=== PATIENT | female | born 1945 | race Caucasian/White ===

== ENCOUNTER 2024-08-27 14:31 | Emergency (ER) | payer MEDICARE, BC ==
[2024-08-27 14:41] VITALS: RESP 18
[2024-08-27] MEDS: DIPH,PERTUS(ACELL)TETVAC-LF 0.5 ML VIAL IM ONE (15:00)
[2024-08-27] MEDS: LIDOCAINE/EPINEPHR/TETRACAINE 5 ML BOTTLE TOPICAL ONE (15:31)
--- NOTE | 2024-08-27 15:35 | CT ---
EXAMINATION TYPE: CT brain cspine wo con DATE OF EXAM: 08/27/2024 3:28 PM COMPARISON: None available. CLINICAL INDICATION: Female, 78 years old with history of pain; Fall. No LOC. No thinners. TECHNIQUE: Brain: Multiple axial CT images of the brain were obtained without IV contrast. Cspine: Axial CT images from the skull base to the inferior aspect of T2 we obtained without intraven ous contrast. Coronal and sagittal reformatted images were also reviewed. . CT DLP: 1194.7 mGycm, Automated exposure control for dose reduction was used. FINDINGS: Brain: Extra-axial spaces: No abnormal extra-axial fluid collections. Ventricular system: Dilatation in proportion to cerebral atrophy. Cerebral parenchyma: No acute intraparenchymal hemorrhage or mass effect. The stafford-white junction is well differentiated. Scattered hypoattenuating areas are seen within the white matter. Cerebellum: Unremarkable. Mass effect: No evidence of midline shift. Intracranial vasculature: unremarkable Soft tissues: Normal. Calvarium/osseous structures: No depressed skull fracture. Paranasal sinuses and mastoid air cells: Clear. Visualized orbits: Orbital contents are intact. Cervical spine: Fracture: None. Osseous structures: Unremarkable Vertebral alignment: Within normal limits. Spinal canal/Neural Foramina: Multilevel facet arthropathy, uncovertebral hypertrophy and posterior d isc osteophyte complexes cause varying degrees of spinal canal and neural foraminal stenosis. Overall , evaluation of the spinal canal limited due to streak artifact. Neck soft tissues: Prevertebral soft tissues are within normal limits. Other: The airway is patent. The lung apices are clear. IMPRESSION: 1. No acute intracranial process. 2. No acute fracture or traumatic subluxation of the cervical spine. 3. Multilevel cervical spine degenerative changes as above. [facility], , 08/27/2024 3:33 PM
--- NOTE | 2024-08-27 15:37 | XR ---
EXAMINATION TYPE: XR knee complete LT DATE OF EXAM: 08/27/2024 3:28 PM COMPARISON: None. CLINICAL INDICATION: Female, 78 years old with history of pain; PHH, pain TECHNIQUE: XR knee complete LT views submitted.. FINDINGS: No acute fracture or dislocation. Small suprapatellar joint effusion. Moderate to severe bart int compartment degenerative arthritis with marginal ossified formation and subchondral sclerosis. IMPRESSION: 1. No acute fracture or dislocation. 2. 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 [facility], , 08/27/2024 3:35 PM
--- NOTE | 2024-08-27 15:41 | ED ---
Fall HPI - General Chief Complaint: Fall Stated Complaint: Fall facial injury L leg Time Seen by Provider: 08/27/24 14:41 Source: patient, RN notes reviewed Mode of arrival: wheelchair Limitations: no limitations - History of Present Illness Initial Comments: 78-year-old female presents emergency department complaint of a trip and fall. Patient states she fell at home striking the left side of her body. Patient went to the left knee pain left hip pain and left side of her head pain. Patient states that she has a laceration, multiple abrasions. She is unsure when her last tetanus was. No visual disturbance denies any neck pain or neck stiffness no back pain she is able to weight-bear on the left leg but is painful. - Related Data Home Medications Medication Instructions Recorded Confirmed Alendronate Sodium [Fosamax] 70 mg PO SA 09/08/14 09/14/14 Fluticasone Propion/Salmeterol 1 inhalation PO RT-BID PRN 09/08/14 09/14/14 [Advair 250-50 Diskus] Ibuprofen [Advil] 200 mg PO Q6HR PRN 09/08/14 09/14/14 Multivit with Calcium,Iron,Min 1 tab PO DAILY 09/08/14 09/14/14 [Women's Daily Multivitamin] Allergies Allergy/AdvReac Type Severity Reaction Status Date / Time metformin Allergy Rash/Hives Verified 08/27/24 14:34 Review of Systems ROS Statement: Those systems with pertinent positive or pertinent negative responses have been documented in the HPI. ROS Other: All systems not noted in ROS Statement are negative. Past Medical History Past Medical History: Asthma, Diabetes Mellitus, GERD/Reflux, Hyperlipidemia, Hypertension, Osteoarthritis (OA), Skin Disorder Additional Past Medical History / Comment(s): 09/14/14 Pt presented to floor s/p lumbar surgery. Other HX: NIDDM, OA affects bilateral knees mostly, rash on arms which is nearly gone History of Any Multi-Drug Resistant Organisms: None Reported Past Surgical History: Back Surgery, Orthopedic Surgery Additional Past Surgical History / Comment(s): 09/14/14 L3-4 lumbar laminectomy and medial facetectomy, L elbow surgery, carpal tunnel surg, bilateral carpal tunnel surgery. Past Anesthesia/Blood Transfusion Reactions: No Reported Reaction Additional Past Anesthesia/Blood Transfusion Reaction / Comment(s): Pt has never recieved blood. Past Psychological History: No Psychological Hx Reported Smoking Status: Never smoker Past Alcohol Use History: None Reported Past Drug Use History: None Reported - Past Family History Mother Family Medical History: No Reported History Additional Family Medical History / Comment(s): Boogie lived to be 90 yrs- healthy Father Family Medical History: Liver Disease Additional Family Medical History / Comment(s): Father was a drinker and had liver problems. He when pt was 7 yrs old. General Exam Limitations: no limitations General appearance: alert, in no apparent distress Head exam: Present: atraumatic, normocephalic, normal inspection Eye exam: Present: normal appearance, PERRL, EOMI, periorbital swelling, periorbital tenderness, other (1 cm laceration left periorbital). Absent: scleral icterus, conjunctival injection ENT exam: Present: normal exam, normal oropharynx, mucous membranes moist Neck exam: Present: normal inspection, full ROM. Absent: tenderness, meningismus, lymphadenopathy Respiratory exam: Present: normal lung sounds bilaterally. Absent: respiratory distress, wheezes, rales, rhonchi, stridor Cardiovascular Exam: Present: regular rate, normal rhythm, normal heart sounds. Absent: systolic murmur, diastolic murmur, rubs, gallop, clicks Extremities exam: Present: other (Left hip, left knee there is abrasion noted to the left knee with moderate swelling) Back exam: Present: full ROM. Absent: tenderness, paraspinal tenderness, vertebral tenderness Neurological exam: Present: alert Skin exam: Present: warm, dry, intact, normal color. Absent: rash Course Vital Signs 08/27/24 14:34 Temperature 98.1 F Pulse Rate 77 Respiratory 18 Rate Blood Pressure 129/77 O2 Sat by Pulse 99 Oximetry Procedures - Laceration Laceration #1 Consent Obtained: verbal consent Indication: laceration Site: face Size (cm): 1 Description: irregular Depth: simple, single layer Anesthetic Used: lidocaine 1% (LET), with epi Pre-repair: wound explored, irrigated extensively Type of Sutures: other (Dermal adhesive) Patient Tolerated Procedure: well, no complications Medical Decision Making - Medical Decision Making Was pt. sent in by a medical professional or institution (, PA, HOME OFFICE CLAIMS EXAMINER, urgent care, hospital, or correction...) When possible be specific @ -No Did you speak to anyone other than the patient for history (EMS, parent, family, police, friend...)? What history was obtained from this source @ -No Did you review nursing and triage notes (agree or disagree)? Why? @ -I reviewed and agree with nursing and triage notes Were old charts reviewed (outside hosp., previous admission, EMS record, old EKG, old radiological studies, urgent care reports/EKG's, correction records)? Report findings @ -No old charts were reviewed Differential Diagnosis (chest pain, altered mental status, abdominal pain women, abdominal pain men, vaginal bleeding, weakness, fever, dyspnea, syncope, headache, dizziness, GI bleed, back pain, seizure, CVA, palpatations, mental health, musculoskeletal)? @ -Fall, intracranial hemorrhage, cervical fracture, facial fracture laceration leg fracture EKG interpreted by me (3pts min.). @ -None X-rays interpreted by me (1pt min.). @ -X-ray left knee no acute fracture osteoarthritis noted X-ray left hip no acute fracture noted no fracture seen on questionable pelvic fracture X-ray pelvis questionable inferior pubic rami CT interpreted by me (1pt min.). @ -CT brain, C-spine showing no acute intracranial mass, mass effect or cervical fracture U/S interpreted by me (1pt. min.). @ -None done What testing was considered but not performed or refused? (CT, X-rays, U/S, labs)? Why? @ -None What meds were considered but not given or refused? Why? @ -None Did you discuss the management of the patient with other professionals (professionals i.e. , PA, HOME OFFICE CLAIMS EXAMINER, lab, RT, psych nurse, social security assessor, leasing director, teacher, access control officer, heel caser)? Give summary @ -No Was smoking cessation discussed for >3mins.? @ -No Was critical care preformed (if so, how long)? @ -No Were there social determinants of health that impacted care today? How? (Homelessness, low income, unemployed, alcoholism, drug addiction, transportation, low edu. Level, literacy, decrease access to med. care, [facility], rehab)? @ -No Was there de-escalation of care discussed even if they declined (Discuss DNR or withdrawal of care, Hospice)? DNR status @ -No What co-morbidities impacted this encounter? (DM, HTN, Smoking, COPD, CAD, Cancer, CVA, ARF, Chemo, Hep., AIDS, mental health diagnosis, sleep apnea, morbid obesity)? @ -None Was patient admitted / discharged? Hospital course, mention meds given and route, prescriptions, significant lab abnormalities, going to OR and other pertinent info. @ -[Discharge patient is able to ambulate with no difficulty. Questionable was not seen on repeat imaging. Patient has no pain with ambulation. Patient laceration was repaired patient discharged in stable condition return parameters joaquín Undiagnosed new problem with uncertain prognosis? @ -No Drug Therapy requiring intensive monitoring for toxicity (Heparin, Nitro, Insulin, Cardizem)? @ -No Were any procedures done? @ -No Diagnosis/symptom? @ -Facial laceration, leg contusion head injury Acute, or Chronic, or Acute on Chronic? @ -[Acute Uncomplicated (without systemic symptoms) or Complicated (systemic symptoms)? @ -Uncomplicated Side effects of treatment? @ -No Exacerbation, Progression, or Severe Exacerbation? @ -No Poses a threat to life or bodily function? How? (Chest pain, [place], [place], pneumonia, PE, COPD, DKA, ARF, appy, cholecystitis, CVA, Diverticulitis, Homicidal, [place]dal[place] icidal, threat to staff... and all critical care pts) @ -No Disposition Clinical Impression: Fall, Facial laceration, Abrasion, knee, Contusion of leg, Head injury Disposition: HOME SELF-CARE Condition: Stable Instructions (If sedation given, give patient instructions): Fall Prevention for Older Adults (ED) Additional Instructions: Please return to the Emergency Department if symptoms worsen or any other concerns. Is patient prescribed a controlled substance at d/c from ED?: No Referrals: Misti Bedoya MD [Primary Care Provider] - 1-2 days Time of Disposition: 17:05
--- NOTE | 2024-08-27 15:46 | XR ---
EXAMINATION TYPE: XR pelvis AP view DATE OF EXAM: 08/27/2024 3:28 PM COMPARISON: None available. CLINICAL INDICATION: Female, 78 years old with history of pain; PHH, pain TECHNIQUE: XR pelvis AP view, examined in a single projection. FINDINGS: Cortical step off and possible fracture line involving the inferior pubic ramus. Left osseo us structures appear demineralized. No definite additional acute fracture or dislocation on this sing le limited AP view. IMPRESSION: Findings suspicious for minimally displaced left inferior pubic ramus fracture. [facility], , 08/27/2024 3:43 PM
[2024-08-27] MEDS: TOPICAL SKIN ADHESIVE 1 EACH AMP TOPICAL ONE (16:30)
--- NOTE | 2024-08-27 16:42 | XR ---
EXAMINATION TYPE: XR Hip Complete LT DATE OF EXAM: 08/27/2024 4:24 PM COMPARISON: Same day pelvis radiograph. CLINICAL INDICATION: Female, 78 years old with history of pain; PHH, pain TECHNIQUE: XR Hip Complete LT; Frontal and lateral views FINDINGS: No evidence of an acute fracture or dislocation in the left hip. Previous described fractur e deformity of the inferior pubic ramus is not well visualized on this study. IMPRESSION: No evidence of an acute fracture or dislocation in the left hip. Previously described fracture of the inferior left pubic ramus is not well visualized on this study. [facility], , 08/27/2024 4:40 PM
[2024-08-27 17:37] VITALS: BP 125/77; PULSE 76; TEMP 98
== END 2024-08-27 17:35 | disposition home or self-care (01) ==
LOC: EC 14:31
DX: S01.112A Laceration without foreign body of left eyelid and periocular area, initial encounter (principal); S80.02XA Contusion of left knee, initial encounter; S70.02XA Contusion of left hip, initial encounter; Z23 Encounter for immunization; W01.10XA Fall on same level from slipping, tripping and stumbling with subsequent striking against unspecified object, initial encounter; Y92.009 Unspecified place in unspecified non-institutional (private) residence as the place of occurrence of the external cause
CPT/HCPCS: 12011; 70450; 72125; 72170; 73502; 90471; 90715; 99284

== ENCOUNTER → 2024-11-21 | Outpatient (CLI) | payer MEDICARE ==
--- NOTE | 2024-11-21 12:07 | MR ---
INDICATION: Patient age:Female; 79 years old; Reason for study: I67.9 CEREBRO DISEASE; PHH. COMPARISON: CT brain C-spine 08/27/2024. TECHNIQUE: Multi planar, multi sequence imaging was performed through the brain without intravenous c ontrast FINDINGS: The stafford-white junctions, ventricular system, basal cisterns appear unremarkable. Mild age-appropriat e cerebral volume loss. Diffusion-weighted imaging shows no evidence of restricted diffusion to sugge st acute/subacute infarct. Intracranial arterial flow voids are maintained. Midline structures show n o abnormality. Patchy and confluent areas of high T2/FLAIR signal intensity are seen within the periv entricular white matter. Largest regions are symmetrical within the periventricular parietal lobe whi te matter. The susceptibility weighted images do not reveal any evidence for micro-hemorrhage. The bone marrow signal is within normal limits. The paranasal sinuses and globes are unremarkable. IMPRESSION: 1. No evidence of intracranial mass or acute/subacute infarct. 2. Mild to moderate nonspecific white matter changes, likely related to small vessel ischemic disease . [facility], , 11/21/2024 12:05 PM
== END | disposition home or self-care (01) ==
LOC: RADMRIMAIN 11:22
PROVIDERS: ATTEND Psychiatry & Neurology Neurology
DX: I67.9 Cerebrovascular disease, unspecified (principal); R90.82 White matter disease, unspecified
CPT/HCPCS: 70551